=== PATIENT | female | born 1990 | race Caucasian/White ===

== ENCOUNTER → 2017-10-11 | Outpatient (CLI) | payer OTHER ==
[~2017-10-11] MED LIST: IOPAMIDOL (ISOVUE-300) 100 ML BTL ONE
== END ==
LOC: FIMAGING 08:05
PROVIDERS: ATTEND Internal Medicine
DX: R91.1 Solitary pulmonary nodule (principal)
CPT/HCPCS: Q9967

== ENCOUNTER 2017-12-19 11:14 | Observation (INO) | payer OTHER ==
--- NOTE | 2017-12-19 11:22 | EDPHY ---
H & P Time Seen by Provider: 12/19/17 11:22 HPI/ROS: CHIEF COMPLAINT: Headache with right arm numbness and right eye symptoms HISTORY OF PRESENT ILLNESS: Patient is a history of migraine headaches and DVT. She started having symptoms last night at 6:30 p.m. With difficulty in her vision in the right eye she was driving home. She describes it going down to a pinhole and then almost to nothing. She then awakened with a right-sided headache in the middle the night and then got up this morning at 7:00 a.m. With right arm numbness and weakness. She presents here with continued right arm numbness and weakness although her right vision is getting better. No eye pain. She also feels like her face is a little tingly on the right side. Patient denies neck pain or left-sided symptoms. Vision is described as blurry. Symptoms severe. No change in speech or balance. REVIEW OF SYSTEMS: Eye: HPI ENT: no sore throat, has left ear hearing aid unchanged Cardiac: no chest pain or syncope Pulmonary: no cough or SOB Abdomen: no vomiting, diarrhea, abdominal pain Musculoskeletal: No neck pain Skin: no rash Neuro: HPI Constitutional: no fever : no urinary symptoms A comprehensive 10 point review of systems is otherwise negative aside from elements mentioned in the history of present illness. PAST MEDICAL HISTORY: Includes hearing loss in the left ear, DVT, long QT, polycystic ovarian. Migraine headache. Social history: General Appearance: Alert and conversant, cooperative. Eyes: No scleral icterus. Pupils equal reactive extraocular motion intact, pupils 2 mm. Right eye she can read fingers and left eye vision is per her report normal. ENT, Mouth: Normal mucous membranes. Respiratory: Normal respiratory effort, breath sounds equal, lungs are clear to auscultation. Cardiovascular: Regular rate and rhythm. Gastrointestinal: Abdomen is soft and non tender. Neurological: Patient is alert, has mild right facial droop. Right arm and right leg weakness especially in resisted extension of elbow and knee. Feels numb and tingly on the right arm. Skin: Warm and dry, no rashes. Musculoskeletal: Neck supple no meningeal signs. Psychiatric: Not agitated. Emergency Department course/MDM: 1130: Made stroke alert on arrival, more than 4.5 hr out, not a candidate for IV Activase. Last known normal was 6:30 p.m. Last night. 1157: CT and CTV and CTA head and neck negative per Dr. Page, no LVO or venous thrombosis. Discussed with Dr. Telles, MRI and admission for further evaluation. Patient was treated with IV Phenergan and now feels better with less headache. 1346: Results and plan discussed with the patient including admission for monitoring, MRI, Neurology consultation. Feels better in our vision is back to normal but she still has numbness and tingling and weakness in her right arm. IV promethazine for nausea. Smoking Status: Never smoked Constitutional: Initial Vital Signs Temperature (C) 36.7 C 12/19/17 11:15 Heart Rate 79 12/19/17 11:15 Respiratory Rate 18 12/19/17 11:15 Blood Pressure 123/101 H 12/19/17 11:15 O2 Sat (%) 100 12/19/17 11:15 O2 Delivery Mode Room Air Allergies/Adverse Reactions: neomycin Allergy (Intermediate, Verified 12/19/17 11:18) Rash Home Medications: Medication Instructions Recorded NK [No Known Home Meds] 12/19/17 Medical Decision Making - Diagnostics EKG Interpretation: 12-lead EKG interpreted by me; official reading is in trace master. My interpretation is sinus rhythm rate 61 with QT 452. Imaging Results: Imaging Impressions Chest X-Ray 12/19/17 11:31 Impression: Normal chest x-ray. Head CT 12/19/17 11:31 Impression: 1. No evidence of acute intracranial pathology. 2. Consider MRI if clinical symptoms warrant. Findings were communicated by telephone with Dr. WILLY SHIRLEY at 12/19/2017 12:03 Head CTA 12/19/17 11:31 Impression: 1. No evidence of arterial occlusive disease or flow-limiting stenosis. 2. No venous sinus thrombosis. Findings were communicated by telephone with Dr. WILLY SHIRLEY at 12/19/2017 12:15 Neck CTA 12/19/17 11:31 Impression: 1. No evidence of arterial occlusive disease. 2. No carotid stenosis. 3. Hypoplastic distal right vertebral artery. Measurement of carotid stenosis is based on the residual internal carotid diameter with [place] Symptomatic Carotid Endarterectomy Trial (NASCET) based stenosis levels. Findings were communicated by telephone with Dr. WILLY SHIRLEY at 12/19/2017 12:23 Brain MRI 12/19/17 12:01 Impression: 1. No evidence for acute intracranial abnormality. No evidence for acute infarct. 2. Right maxillary sinus disease with a large mucous retention cyst and mucous membrane thickening. Imaging: Discussed imaging studies w/ call taker Radiologist Differential Diagnosis: Differential considered including but not limited to venous sinus thrombosis, ischemic stroke, vascular dissection, atypical migraine. Consult/Admit Bed Type: [place] [id number], [facility] for Dr. Lazar 1217 Critical Care Time: Critical care time spent by me, Dr. Shirley, exclusively with the care of this patient was 30 minutes, exclusive of PA or WATERPROOFER time and exclusive of separate procedures. The organ system at risk was neurologic and I ordered multiple diagnostic studies, IV antiemetics, consultation with specialist to stabilize the patient with an emergent evaluation of acute neurologic problem. - Data Points Laboratory Results: Laboratory Results 12/19/17 11:30 12/19/17 11:30 12/19/17 12/19/17 12/19/17 11:33 11:30 11:30 WBC RBC Hgb POC Hgb 16.3 gm/dL gm/dL (12.6-16.3) Hct POC Hct 48 % H % (38-47) MCV MCH MCHC RDW Plt Count MPV Neut % (Auto) Lymph % (Auto) [place] % (Auto) Eos % (Auto) Baso % (Auto) Nucleat RBC Rel Count Absolute Neuts (auto) Absolute Lymphs (auto) Absolute Monos (auto) Absolute Eos (auto) Absolute Basos (auto) Absolute Nucleated RBC Immature Gran % Immature Gran # PT INR POC Sodium 141 mEq/L mEq/L (135-145) Sodium 142 mEq/L mEq/L (135-145) POC Potassium 3.1 mEq/L L mEq/L (3.3-5.0) Potassium 3.5 mEq/L mEq/L (3.3-5.0) POC Chloride 102 mEq/L mEq/L (97-110) Chloride 104 mEq/L mEq/L (97-110) Carbon Dioxide 24 mEq/l mEq/l (22-31) Anion Gap 14 mEq/L mEq/L (8-16) POC BUN 8 mg/dL mg/dL (7-23) BUN 10 mg/dL mg/dL (7-23) Creatinine 0.5 mg/dL L mg/dL (0.6-1.0) POC Creatinine 0.6 mg/dL mg/dL (0.6-1.0) Estimated GFR > 60 Glucose 85 mg/dL mg/dL (70-100) POC Glucose 92 mg/dL mg/dL (70-100) Calcium 9.5 mg/dL mg/dL (8.5-10.4) Troponin I < 0.012 ng/mL ng/mL (0.000-0.034) Beta HCG, Qual NEGATIVE 12/19/17 12/19/17 11:30 11:30 WBC 9.23 10^3/uL 10^3/uL (3.80-9.50) RBC 4.97 10^6/uL 10^6/uL (4.18-5.33) Hgb 15.7 g/dL g/dL (12.6-16.3) POC Hgb Hct 45.8 % % (38.0-47.0) POC Hct MCV 92.2 fL fL (81.5-99.8) MCH 31.6 pg pg (27.9-34.1) MCHC 34.3 g/dL g/dL (32.4-36.7) RDW 11.6 % % (11.5-15.2) Plt Count 297 10^3/uL 10^3/uL (150-400) MPV 9.6 fL fL (8.7-11.7) Neut % (Auto) 48.2 % % (39.3-74.2) Lymph % (Auto) 44.4 % % (15.0-45.0) [place] % (Auto) 6.0 % % (4.5-13.0) Eos % (Auto) 0.8 % % (0.6-7.6) Baso % (Auto) 0.4 % % (0.3-1.7) Nucleat RBC Rel Count 0.0 % % (0.0-0.2) Absolute Neuts (auto) 4.45 10^3/uL 10^3/uL (1.70-6.50) Absolute Lymphs (auto) 4.10 10^3/uL H 10^3/uL (1.00-3.00) Absolute Monos (auto) 0.55 10^3/uL 10^3/uL (0.30-0.80) Absolute Eos (auto) 0.07 10^3/uL 10^3/uL (0.03-0.40) Absolute Basos (auto) 0.04 10^3/uL 10^3/uL (0.02-0.10) Absolute Nucleated RBC 0.00 10^3/uL 10^3/uL (0-0.01) Immature Gran % 0.2 % % (0.0-1.1) Immature Gran # 0.02 10^3/uL 10^3/uL (0.00-0.10) PT 12.7 SEC SEC (12.0-15.0) INR 0.93 (0.83-1.16) POC Sodium Sodium POC Potassium Potassium POC Chloride Chloride Carbon Dioxide Anion Gap POC BUN BUN Creatinine POC Creatinine Estimated GFR Glucose POC Glucose Calcium Troponin I Beta HCG, Qual Medications Given: Acetaminophen (Tylenol) 650 mg PO Q4 PRN PRN Reason: Pain, Mild/Fever, Can Take PO Stop: 06/17/18 16:09 Last Admin: 12/19/17 16:49 Dose: 650 mg Fluticasone Propionate (Flonase Nasal [place]) 2 sprays [place] DAILY [facility] Stop: 06/17/18 16:14 Last Admin: 12/19/17 18:02 Dose: 2 sprays Gabapentin (Neurontin) 300 mg PO DAILY [facility] Stop: 06/17/18 16:14 Last Admin: 12/19/17 16:50 Dose: 300 mg Discontinued Medications Metoclopramide HCl (Reglan Injection) 10 mg IVP EDNOW ONE Stop: 12/19/17 12:02 Last Admin: 12/19/17 11:30 Dose: 10 mg Promethazine HCl (Phenergan) 6.25 mg IVP ONCE ONE Stop: 12/19/17 13:50 Last Admin: 12/19/17 13:52 Dose: 6.25 mg Point of Care Test Results: 12/19/17 11:33 POC Sodium 141 POC Potassium 3.1 L POC Chloride 102 POC BUN 8 POC Creatinine 0.6 POC Glucose 92 Departure - Departure Disposition: [facility] Inpatient Acute Clinical Impression: Right sided weakness Condition: Good
[2017-12-19] MEDS ORDERED: METOCLOPRAMIDE 10 MG/2 ML VIAL ONE (11:34)
[2017-12-19 11:38] LABS: PLATELET COUNT 297 10^3/uL (150-400)
[2017-12-19] MEDS ORDERED: IOPAMIDOL (ISOVUE 370) 100 ML BTL IV ONE (11:40)
[2017-12-19 11:46] LABS: INR 0.93 (0.83-1.16); PROTIME(PATIENT) 12.7 SEC (12.0-15.0)
[2017-12-19] MEDS ORDERED: METOCLOPRAMIDE 10 MG/2 ML VIAL IVP ONE (12:01)
--- NOTE | 2017-12-19 12:07 | CPEKG ---
Heart Rate: 61 RR Interval: 984 P-R Interval: 136 QRSD Interval: 92 QT Interval: 452 QTC Interval: 456 P [place]: 50 QRS [place]: 44 T Wave [place]: 47 EKG Severity - OTHERWISE NORMAL ECG - EKG Impression: SINUS ARRHYTHMIA, RATE 51-73 Electronically Signed By: Larry Barraza 19-Dec-2017 12:11:58
[2017-12-19] MEDS ORDERED: ONDANSETRON 4 MG/2 ML VIAL IVP PRN (12:28)
[2017-12-19] MEDS ORDERED: ACETAMINOPHEN 650 MG SUPP PR PRN (12:28)
[2017-12-19] MEDS ORDERED: PROMETHAZINE HCL 25 MG/ML INJ IVP ONE (13:49)
[2017-12-19] MEDS ORDERED: PROMETHAZINE HCL 25 MG/ML INJ ONE (13:50)
--- NOTE | 2017-12-19 16:14 | NEUROPROG ---
Assessment: [id number] - Neurology Consult: - CC: Dr. Larry Song consulted neurology for headache with right eye vision changes and right arm numbness. Results placed in EMR for his review. - HPI: Pt reported at 6:30 on 12/18/17 she began getting right eye vision problems. She awoke in the middle of the night with a headache then went back to sleep. She then awoke at 7 am on 12/19/17 with right arm numbness and weakness. Her right eye vision changes had improved. A brain MRI, head CTA/CTV, and neck CTA were all unremarkable so it was felt she was likely have an atypical migraine ( history of migraines). I initially saw her on 12/19/17. Her headache had improved with IV phenergan given in the ER. She reported to me a long history of migraines since childhood and noted over the last 2 months she was getting daily headaches. I recommended trying gabapentin 300 mg qhs for migraine prophylaxis and f/u with me in 4 weeks to assess response. Neurologic exam showed give way weakness in right arm but was otherwise normal. - PMHx: MHAs, DVT, congenital hearing loss at , long QT, polycystic ovarian - SHx: FHx: NC - ROS: Pt denied acute fever, total vision loss, active severe chest pain, respiratory failure, total body severe rash, total bowel/bladder incontinence, psychosis, active seizures, or active bleeding - O: VS reviewed General: Alert Eyes: Fundoscopic exam not able to visualize optic disks CV: Heart RRR, no murmur, no carotid bruit Lungs: Clear to auscultation bilaterally, no rhonchi or rales Neuro: - Mental: . Oriented x person/place/date . concentration appears normal . speech fluency/comprehension normal . memory appears normal . fund of knowledge appear intact - Cranial Nerves: . II: PERRL, VFFTC . III/IV/: EOMI, no nystagmus, normal smooth pursuits, no Ptosis . V: facial sensation intact to LT . VII: face symmetric to eye closure and smile . VIII: hearing intact to conversation . IX/X: uvula raises symmetrically . XI: SCM 5/5 B/L strength . XII: tongue protrudes midline w/nl strength - Motor: . Tone: normal tone in all 4 extremity . Strength: no pronator drift, strength 5/5 throughout except for some right arm give way weakness - Reflexes: B/L bic/BR/patella 2/4 - Sensory: all 4 extremity intact to light touch - Coord: [id number] wnl, NOHEMY wnl, [id number] wnl - Gait: deferred - Labs: 12/19/17- CBC wnl, Chem K 3.1L, HCG neg - Rads: 12/19/17- Head CT w/o con: no intracranial pathology (I personally visualized the images on 12/19/17) 12/19/17- CTA head/neck and CTV head: no abnormality seen 12/19/17- Brain MRI w/o con: normal - Assessment: 1. Atypical Migraine with headache, right eye vision changes, and right arm sensory changes and weakness on 12/19/17: Normal neurologic exam on 12/19/17 other than some give way right arm weakness. Brain MRI, CTA/CTV head, and neck CTA all unremarkable. I suspect she is having atypical migraines avg 30 days/ month in last 2 months. - Plan: - Trial of gabapentin 300 mg po qhs migraine prophylaxis - F/U in neurology clinic in 4 weeks to assess response Objective: Vital Signs Temp Pulse Resp BP Pulse Ox 36.9 C 75 18 108/67 16 L 12/19/17 15:18 12/19/17 15:18 12/19/17 14:55 12/19/17 15:18 12/19/17 15:18 PT 12.7 SEC (12.0-15.0) 12/19/17 11:30 INR 0.93 (0.83-1.16) 12/19/17 11:30 Allergies/Adverse Reactions: neomycin Allergy (Intermediate, Verified 12/19/17 11:18) Rash
--- NOTE | 2017-12-19 16:35 | CPEKG ---
Heart Rate: 87 RR Interval: 690 P-R Interval: 120 QRSD Interval: 86 QT Interval: 404 QTC Interval: 486 P [place]: 50 QRS [place]: 7 T Wave [place]: 28 EKG Severity - BORDERLINE ECG - EKG Impression: SINUS ARRHYTHMIA, RATE 63-103 EKG Impression: BORDERLINE PROLONGED QT INTERVAL Electronically Signed By: Larry Barraza 20-Dec-2017 19:39:12
[2017-12-19] MEDS: ACETAMINOPHEN 325 MG TAB PO PRN (16:49)
[2017-12-19] MEDS: GABAPENTIN 300 MG CAP PO SCH (16:50)
--- NOTE | 2017-12-19 16:50 | GHP ---
[f rep st] HISTORY AND PHYSICAL DATE OF ADMISSION: 12/19/2017 CHIEF COMPLAINT: Right-sided weakness. HISTORY: The patient is a 27-year-old female who has a history of migraine headaches when she was a teenager, but has not suffered from headaches as an adult. Approximately 1 month ago, she started to develop increased migraine headaches daily through the month of October. She woke up this morning wit h new neurologic symptoms, which she noticed first when she awoke from sleep at 7 a.m. She describes a flicking sensation in her right eye that worsened to complete loss of vision in her right eye. Kathya whaley also has new onset right arm numbness and weakness. She is able to ambulate. The right side of he r face is also numb. She is now improved, but is not back to 100%. She complains of nausea, but no vomiting. She complains of pulsatile tinnitus in her right ear. PAST MEDICAL HISTORY: 1. 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 2. Migraine headaches as above. 3. History of DVT and Factor V Leiden. She got her DVT while she was on control and was bedri dden with mono. She is currently off anticoagulation, but will never take OCP again. 4. Polycystic ovarian syndrome. 5. Long QT. MEDICATIONS: Please see computer record for full detailed list. ALLERGIES: To neomycin. SOCIAL HISTORY: No smoking. Rare alcohol. She lives with her . They do not have children. Her is currently out of town. 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 REVIEW OF SYSTEMS: Complete review of systems obtained. Review of systems negative regarding consti tutional, HEENT, GI, pulmonary vascular, , hematology, muscular, endocrine, psych, except for posit bee as noted in HPI. FAMILY HISTORY: Positive for Factor V Leiden with blood clots on her dad's side. PHYSICAL EXAMINATION: GENERAL: Well-developed, well-nourished female in no distress. VITAL SIGNS: Temperature 36.7, pulse 73, blood pressure 112/71, saturating 99% room air. HEENT: Normal conjunct ivae. Pupils react light. ENT: Normal ears, nose. Hearing intact. Normal teeth. Oropharynx mois t. NECK: Trachea midline. No thyromegaly. CHEST: Normal effort. lungs Clear to auscultation leonarda aterally. CARDIOVASCULAR: Regular rhythm. No murmur. No lower extremity edema. ABDOMEN: Soft, n ontender. No hepatomegaly. SKIN: Warm, dry, intact. No rash. MUSCULOSKELETAL: No cyanosis or cl ubbing. Strength on the right side is 2/5, although I question if there may be an effort component. She does not have a facial droop at baseline; however, was not able to raise her mouth on the right side during testing. Her tongue is midline, although she claims to not be able to get it all the way out of her mouth. Decreased sensation to touch on her whole right side. PSYCH: Alert and oriented x3. Normal affect. Normal judgment. Normal memory. LABORATORY DATA: White count 9.23, hematocrit 45.8, platelets 297. Sodium 141, potassium 3.5, chlor gustavo 104, bicarb 24, BUN 10, creatinine 0.5, glucose 85. Troponin is negative. test is neg ative. EKG viewed by me. My personal interpretation: Normal sinus rhythm. No ST, T-wave changes. QTc is 450. Chest x-ray is negative. MRI of the brain is negative, except for sinusitis in the right maxillary sinus. ASSESSMENT/PLAN: 1. Right-sided weakness. Stroke has been ruled out by MRI. Differential diagnosis is complex migra ine versus nonorganic syndrome. I do see some inconsistencies in her neuro exam. Dr. Telles will see her in consultation this afternoon. We will consult physical therapy, occupational therapy. 2. Right maxillary sinusitis. This might explain some of her symptoms, including a tinnitus in the right ear and the sensation change and possible vision change in the right eye, although would not ex plain the weakness in her arms and leg. Will start her on Flonase. 3. Congenital deafness. She has hearing aids, reads lips, and is very skilled, and easily communica ginny. 4. Factor V Leiden with a history of deep venous thrombosis. Will prescribe Lovenox for deep venous thrombosis prophylaxis. 5. History of long QT syndrome. QT on presentation here is 450, which is not that bad. CODE STATUS: Full. ADMISSION STATUS: Will admit to observation. Reevaluate tomorrow for ongoing need for hospitalizati on. DVT PROPHYLAXIS: She is high risk. Will place on subcu Lovenox. /[id number]/MODL
--- NOTE | 2017-12-19 17:56 | ASMTCMCOM ---
CM Note CM Note Notes: Pt presented to the ED through triage (pt states she was dropped off by a friend) for a headache, blurry vision, right sided facial numbness, and right arm numbness/weakness that started this morning. Pt is deaf and reads lips and wears hearing aids. Pt also has a hx of DVT and Factor V Leiden. Spoke w/pt and she states her , Dirk, is out of town right now but would like him contacted. Spoke with Dirk ([phone]), who is in [place] at this time. Dirk says he is set to return Sunday morning but will come back to [place] earlier if needed. Dirk was kept up-to-date throughout pt's stay while in the ED and then he was provided [facility] # and pt's room # and encouraged to call for updates or to speak with patient. Dirk also says he will contact pt's parents or other family/friends if needed. Neuro to consult and PT/OT ordered. Anticipated pt to DC home w/family and to follow up outpatient. CM to follow. Date Signed: 12/19/2017 05:55 PM Electronically Signed By:Sol Barry RN
[2017-12-19] MEDS: FLUTICASONE NASAL 120 SPRAYS/16 GM MDI EACHNARE SCH (18:02)
[2017-12-20 07:33] VITALS: BP 116/74
[2017-12-20] MEDS: GABAPENTIN 300 MG CAP PO SCH (08:08)
[2017-12-20] MEDS: ACETAMINOPHEN 325 MG TAB PO PRN (08:09)
--- NOTE | 2017-12-20 08:35 | HOSPPROG ---
Hospitalist Progress Note Assessment/Plan: Patient is a 27-year-old female who has a history migraine headaches as a teenager but then had not suffered from them as an adult. Approximately a month ago she started developed increased symptoms. Today is my 1st encounter with the patient. Chart reviewed. * Atypical Migraine with headache -imaging is stable -trial of gabapentin 300 mg p.o. At bedtime for migraine prophylaxis -to follow up with Neurology in 4 weeks to see how she is doing with this * right maxillary sinusitis -she has some tinnitus in her right ear, started on Flonase * congenital deafness -wears hearing aids * factor 5 Leiden with a history of DVT -was treated with low-molecular weight heparin, DVT prophylaxis Subjective: Kenia is feeling well, no complaints. wants to go home. Objective: Vital Signs Temp Pulse Resp BP Pulse Ox 36.7 C 76 16 116/74 90 L 12/20/17 07:32 12/20/17 07:32 12/20/17 07:32 12/20/17 07:32 12/20/17 07:32 12/19/17 12/20/17 12/21/17 05:59 05:59 05:59 Intake Total 350 Balance 350 PT 12.7 SEC (12.0-15.0) 12/19/17 11:30 INR 0.93 (0.83-1.16) 12/19/17 11:30 - Physical Exam Constitutional: no apparent distress, appears nourished, not in pain Eyes: PERRL Ears, Nose, Mouth, Throat: hearing normal Cardiovascular: regular rate and rhythym Respiratory: no respiratory distress Musculoskeletal: full muscle strength Neurologic: AAOx3 Psychiatric: interacting appropriately ICD10 Worksheet Patient Problems: Problems Problem Status Onset Right sided weakness Acute
[2017-12-20] MEDS ORDERED: ENOXAPARIN 40 MG/0.4 ML SYR SC SCH (09:00)
--- NOTE | 2017-12-20 09:17 | GDS ---
[f rep st] DISCHARGE SUMMARY DISCHARGE DIAGNOSES: 1. Atypical migraine. 2. Right maxillary sinusitis. 3. Congenital deafness. 4. Factor V with a history of deep vein thrombosis. 5. History of long QT syndrome. HISTORY: Briefly, the patient is a 27-year-old female who has a history of migraine headaches when s he is a teenager, but has not suffered any as an adult. Approximately 1 month ago, she started devel oping increased migraine headaches daily through the month of October. She also was complaining of num bness to her right side of her face. She had imaging done, including a CTA, CT, and MRI, which were all negative except for sinusitis in the right maxillary sinus. She was admitted, seen and evaluated by Dr. Telles. HOSPITAL COURSE: 1. Atypical migraine with headache. Imaging is stable. A trial of gabapentin p.o. at bedtime has b een given to her for migraine prophylaxis. 2. Right maxillary sinusitis. She is on Flonase. 3. Congenital deafness. She is wearing hearing aids and hears quite well. 4. Factor V with a history of DVT. She was treated with DVT prophylaxis. 5. Long QT interval, stable. DISCHARGE CONDITION: Stable. Blood pressure is 116/74, heart rate 76. Respiratory rate is 16. O2 sats on room air 90%. Temperature 36.7 Celsius. DISCHARGE MEDICATIONS: She will be provided a prescription of gabapentin to take prophylactically ni sebastiently to see if she can mich her migraines. DISCHARGE INSTRUCTIONS: 1. To follow up with Dr. Myron Telles in approximately 4 weeks. 2. If she develops any stroke-like symptoms, fever, chills, chest pain, or shortness of breath, kane cardenas to the ER. /[id number]/MODL
--- NOTE | 2017-12-20 09:51 | NEUROPROG ---
Assessment: [id number] - Neurology Consult: - CC: F/U for atypical migraine - Narrative Summary: Pt with history of congenital deafness, DVT from Factor V Leiden def, and migraine headaches. Pt reported at 6:30 on 12/18/17 she began getting right eye vision problems. She awoke in the middle of the night with a headache then went back to sleep. She then awoke at 7 am on 12/19/17 with right arm numbness and weakness. Her right eye vision changes had improved. She came to [facility] ER for evaluation where she had a brain MRI, head CTA/CTV, and neck CTA that were all unremarkable so it was felt she was likely have an atypical migraine. I initially saw her on 12/19/17. Her headache had improved with IV phenergan given in the ER. She reported to me a long history of migraines since childhood and noted over the last 2 months she was getting daily headaches. I recommended trying gabapentin 300 mg qhs for migraine prophylaxis and f/u with me in 4 weeks to assess response. Neurologic exam showed give way weakness in right arm but was otherwise normal. - HPI: F/U 12/20/17. Pt reported migraine improving on gabapentin 300 mg qhs. She feels her right arm weakness is getting better. No new complaints. - PMHx: MHAs, DVT, congenital hearing loss at , long QT, polycystic ovarian - SHx: FHx: NC - ROS: Pt denied acute fever, total vision loss, active severe chest pain, respiratory failure, total body severe rash, total bowel/bladder incontinence, psychosis, active seizures, or active bleeding - Labs: 12/19/17- CBC wnl, Chem K 3.1L, HCG neg - Rads: 12/19/17- CTA head/neck and CTV head: no abnormality seen 12/19/17- Brain MRI w/o con: normal - Assessment: 1. Atypical Migraine with headache, right eye vision changes, and right arm sensory changes and weakness on 12/19/17: Normal neurologic exam on 12/19/[address] right arm weakness. Brain MRI, CTA/CTV head, and neck CTA all unremarkable. I suspect she is having atypical migraines avg 30 days/ month in last 2 months. - Plan: - Trial of gabapentin 300 mg po qhs migraine prophylaxis - F/U in neurology clinic in 4 weeks to assess response - No further neurologic w/u needed, neurology will sign off - 35 min spent with patient. Majority of time spent counseling on migraines and treatment options as well as prognosis. Objective: Vital Signs Temp Pulse Resp BP Pulse Ox 36.7 C 76 16 116/74 90 L 12/20/17 07:32 12/20/17 07:32 12/20/17 07:32 12/20/17 07:32 12/20/17 07:32 12/19/17 12/20/17 12/21/17 05:59 05:59 05:59 Intake Total 350 Balance 350 PT 12.7 SEC (12.0-15.0) 12/19/17 11:30 INR 0.93 (0.83-1.16) 12/19/17 11:30 Allergies/Adverse Reactions: neomycin Allergy (Intermediate, Verified 12/19/17 11:18) Rash
[2017-12-20] MEDS: FLUTICASONE NASAL 120 SPRAYS/16 GM MDI EACHNARE SCH (10:38)
--- NOTE | 2017-12-20 16:26 | ASMTCMCOM ---
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 Pt medically stable for d/c. Date Signed: 12/20/2017 04:25 PM Electronically Signed By:LEDA Villarreal
== END 2017-12-20 11:36 | disposition home or self-care (01) ==
LOC: F3N 15:11
PROVIDERS: ADMIT Internal Medicine; ATTEND Student in an Organized Health Care Education/Training Program
DX: G43.801 Other migraine, not intractable, with status migrainosus (principal); J01.00 Acute maxillary sinusitis, unspecified; H90.5 Unspecified sensorineural hearing loss; H53.122 Transient visual loss, left eye; D68.2 Hereditary deficiency of other clotting factors; E28.2 Polycystic ovarian syndrome; Z86.718 Personal history of other venous thrombosis and embolism; Z86.79 Personal history of other diseases of the circulatory system
CPT/HCPCS: 70450; 70496; 70498; 70551; 71045; 92523; 93005; 96374; 99291; G0378; 82947-QW; J1650; J2550; J2765; Q9967